=== PATIENT | female | born 1980 | race Caucasian/White ===

== ENCOUNTER 2019-12-12 00:07 | Emergency (ER) | payer SELFPAY ==
[~2019-12-12] VITALS: Ht 162.6 cm; Wt 70.4 kg
[2019-12-12] MEDS ORDERED: IV NORMAL SALINE 1000ML BAG 1,000 ML IV SCH (00:15)
--- NOTE | 2019-12-12 00:16 | PHYS DOC ---
Past Medical History Past Medical History: Other Additional Past Medical Histor: PCOS, HPV Past Surgical History: Appendectomy Alcohol Use: None Drug Use: None General Adult EDM: Chief Complaint: OVERDOSE HPI: HPI: Patient is a 39 year old female who presents via EMS with report of trying to detox herself off of heroin and Xanax. Patient states that her last heroin use was yesterday and last Xanax use was 2 days ago. Patient has been using for approximately 3 years. She states that she has come off in the past but started using again about a year ago. Patient states that she is waking up in sweats and she has also been nauseated. [] Review of Systems: Review of Systems: Constitutional: Denies fever or chills. [] Respiratory: Denies cough or shortness of breath. [] Cardiovascular: Denies chest pain or edema. [] GI: Denies abdominal pain. Complains of nausea. [] Neurologic: Denies headache, focal weakness or sensory changes. [] A full 10 point review of systems has been reviewed and is otherwise negative. Heart Score: Risk Factors: Risk Factors: DM, Current or recent (<one month) smoker, HTN, HLP, family history of CAD, obesity. Risk Scores: Score 0 - 3: 2.5% MACE over next 6 weeks - Discharge Home Score 4 - 6: 20.3% MACE over next 6 weeks - Admit for Clinical Observation Score 7 - 10: 72.7% MACE over next 6 weeks - Early Invasive Strategies Allergies: Allergies: Allergies Coded Allergies Type Severity Reaction Last Updated Verified No Known Drug Allergies 07/02/13 No Physical Exam: PE: Constitutional: Well developed, well nourished, no acute distress, non-toxic appearance. [] HENT: Normocephalic, atraumatic, bilateral external ears normal, oropharynx moist, no oral exudates, nose normal. [] Eyes: PERRLA, EOMI, conjunctiva normal, no discharge. [] Neck: Normal range of motion, no tenderness, supple, no stridor. [] Cardiovascular: Regular rate and rhythm [] Lungs & Thorax: Bilateral breath sounds clear to auscultation [] Abdomen: Bowel sounds normal, soft, no tenderness. [] Skin: Warm, dry, no erythema, no rash. [] Extremities: No tenderness, no cyanosis, no clubbing, ROM intact, no edema. [] Neurologic: Alert and oriented X 3, no focal deficits noted. [] Psychologic: Affect normal, judgement normal, mood normal. [] EKG: EKG: [] Radiology/Procedures: Radiology/Procedures: [] Course & Med Decision Making: Course & Med Decision Making Pertinent Labs and Imaging studies reviewed. (See chart for details) [] Dragon Disclaimer: Dragon Disclaimer: This electronic medical record was generated, in whole or in part, using a voice recognition dictation system. Departure Departure Impression: Primary Impression: Benzodiazepine withdrawal Qualified Codes: F13.230 - Sedative, hypnotic or anxiolytic dependence with withdrawal, uncomplicated Additional Impressions: Methamphetamine abuse Heroin withdrawal Disposition: 01 HOME, SELF-CARE Condition: STABLE Referrals: NON,STAFF (PCP) Patient Instructions: Benzodiazepine Withdrawal, Heroin Abuse and Withdrawal Justicifation of Admission Dx: Justifications for Admission: Justification of Admission Dx: Comment: (Not applicable) PATRICK TAYLOR Jr. DO Dec 12, 2019 00:16
[2019-12-12 00:22] LABS: BILIRUBIN,URINE NEGATIVE (NEG); CLARITY,URINE CLEAR; COLOR,URINE YELLOW; NITRITE,URINE NEGATIVE (NEG); PROTEIN,URINE NEGATIVE (NEG-TRACE); UROBILINOGEN,URINE 0.2 mg/dL (0.2 mg/dL)
[2019-12-12 00:29] LABS: BARBITURATES NEG (NEG); BENZODIAZEPINES NEG (NEG); CANNABINOIDS NEG (NEG); COCAINE NEG (NEG); METHADONE NEG (NEG); OPIATES POS (NEG); PHENCYCLIDINE NEG (NEG); SQUAMOUS EPITHELIAL CELL,UR MOD /LPF
[2019-12-12 00:30] LABS: BACTERIA,URINE FEW /HPF (0-FEW); RBC,URINE 0 /HPF (0-2)
[2019-12-12 00:34] LABS: AMPHETAMINE/METHAMPHETAMINE POS (NEG)
[2019-12-12] MEDS ORDERED: chlordiazePOXIDE HCL 25 MG CAPSULE ONE (01:21)
[2019-12-12] MEDS ORDERED: chlordiazePOXIDE HCL 25 MG CAPSULE PO ONE (01:30)
[2019-12-12 01:32] LABS: BASO # 0.1 x10^3/uL (0.0-0.2); BASO % 1 % (0-3); EOS # 0.4 x10^3/uL (0.0-0.7); EOS % 4 % (0-3); HEMATOCRIT 38.5 % (36.0-47.0); HEMOGLOBIN 12.8 g/dL (12.0-15.5); LYMPH # 2.8 x10^3/uL (1.0-4.8); LYMPH % 32 % (24-48); MEAN CORPUSCULAR HEMOGLOBIN 28 pg (25-35); MEAN CORPUSCULAR HGB CONC 33 g/dL (31-37); MEAN CORPUSCULAR VOLUME 84 fL (79-100); MONO # 0.7 x10^3/uL (0.0-1.1); MONO % 8 % (0-9); NEUT # 4.8 x10^3/uL (1.8-7.7); NEUT % 55 % (31-73); PLATELET COUNT 244 x10^3/uL (140-400); RED BLOOD COUNT 4.59 x10^6/uL (3.50-5.40); RED CELL DISTRIBUTION WIDTH 16.2 % (11.5-14.5); WHITE BLOOD COUNT 8.8 x10^3/uL (4.0-11.0)
[2019-12-12 01:40] LABS: CALCIUM 8.4 mg/dL (8.5-10.1); CREATININE 0.9 mg/dL (0.6-1.0); GFR 70.1
[2019-12-12 01:45] VITALS: BP 124/76
[2019-12-12 01:46] LABS: DIRECT BILIRUBIN 0.1 mg/dL (0.0-0.2); MAGNESIUM 1.9 mg/dL (1.8-2.4); TOTAL BILIRUBIN 0.1 mg/dL (0.2-1.0); TOTAL PROTEIN 6.8 g/dL (6.4-8.2)
== END 2019-12-12 02:35 | disposition home or self-care (01) ==
LOC: ER 00:07
DX: F13.230 Sedative, hypnotic or anxiolytic dependence with withdrawal, uncomplicated (principal); L75.0 Bromhidrosis; F15.10 Other stimulant abuse, uncomplicated; F11.23 Opioid dependence with withdrawal; R11.0 Nausea; E28.2 Polycystic ovarian syndrome; Z90.89 Acquired absence of other organs
CPT/HCPCS: 36415; 80048; 80076; 80307; 81001; 81025; 83735; 85025; 87086; 99283; G0480; J7030

== ENCOUNTER → 2021-11-08 | Emergency (ER) | payer MEDICAID ==
[~2021-11-08] VITALS: Ht 162.6 cm; Wt 75.0 kg
[~2021-11-08] MED LIST: HYDR-2761 PO; HYDROcodone/APAP 5/325MG 1 TAB TABLET PO ONE; IBUP-1007 PO
[2021-11-08 18:06] VITALS: BP 126/76
--- NOTE | 2021-11-08 19:43 | RAD ---
EXAM: XR ELBOW COMPLETE_LEFT 3+VIEWS 11/08/2021 6:54 PM CLINICAL INDICATION: Fall, pop and pain in left elbow COMPARISON: None TECHNIQUE: 3 views of the left elbow. FINDINGS: There is a mildly displaced radial neck fracture. Alignment is normal. There is a large jerson int effusion. IMPRESSION: Mildly displaced radial neck fracture. Electronically signed by: Sun Guzman MD (11/08/2021 7:40 PM) [facility]
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
== END | disposition home or self-care (01) ==
LOC: ER 17:57
DX: S52.122A Displaced fracture of head of left radius, initial encounter for closed fracture (principal); F17.200 Nicotine dependence, unspecified, uncomplicated; Y08.89XA Assault by other specified means, initial encounter; Y93.89 Activity, other specified; Y92.89 Other specified places as the place of occurrence of the external cause; Y99.8 Other external cause status
CPT/HCPCS: 29125; 73080; 99283